=== PATIENT | male | born 1995 | race Two or more races ===

== ENCOUNTER 2017-08-29 03:02 | Emergency (ER) | payer OTHER ==
[~2017-08-29] VITALS: Ht 172.7 cm; Wt 65.8 kg
--- NOTE | 2017-08-29 03:10 | NUR ---
22 YO MALE BB RA FROM HOME. PATIENT IS ALERT AND ORIENTED, C/O NAUSEA, BODY ACHES, FLUE LIKE SYMPTOMS. PATIENT ASSISTED TO ER BED, SKINW ARM AND DRY, RESP EVEN AND UNLABORED. AWAITING ORDERS FROM PROVIDER, WILL CONTINUE TO MONITOR
--- NOTE | 2017-08-29 03:12 | NUR ---
ANDREW VELEZ MD AT BED SIDE FOR EVAL
[2017-08-29] MEDS ORDERED: IV NS 0.9% 1,000 ML IV PRN ×3 (03:30→05:00)
[2017-08-29 03:48] LABS: BASOPHILS % (AUTO) 0.3 % (0.0-2.0); EOSINOPHILS % (AUTO) 0.7 % (0.0-6.0); HEMATOCRIT 41 % (39-51); LYMPHOCYTES # (AUTO) 1.3 /CMM (0.8-4.8); LYMPHOCYTES % (AUTO) 24.2 % (20.0-44.0); MEAN CORPUSCULAR HEMOGLOBIN 31 PG (26.0-33.0); MEAN CORPUSCULAR HGB CONC 34 g/dl (31.0-36.0); MEAN CORPUSCULAR VOLUME 91 fL (80-96); MONOCYTES # (AUTO) 0.9 /CMM (0.1-1.30); NEUTROPHILS # (AUTO) 3.1 /CMM (1.8-8.9); NEUTROPHILS % (AUTO) 57.8 % (43.0-81.0); PLATELET COUNT (AUTO) 202 /CMM (150-450); RDW COEFFICIENT OF VARIATION 13.8 (11.5-15.0); RED BLOOD CELL COUNT(AUTO) 4.49 MIL/uL (4.5-6.0); WHITE BLOOD COUNT (AUTO) 5.4 K/uL (4.3-11.0)
[2017-08-29] MEDS ORDERED: MORPHINE SULFATE INJ 4 MG/ML DISP.SYRIN ONE (04:08)
[2017-08-29 04:09] LABS: BAND % (MANUAL) 4 % (0.0-5.0); LYMPHOCYTES % (MANUAL) 16 % (16-48); MONOCYTES % (MANUAL) 12 % (0-11.0)
[2017-08-29 04:10] LABS: ALBUMIN 3.6 g/dL (3.4-5.0); BILIRUBIN,DIRECT 0.1 mg/dL (0.0-0.2); BILIRUBIN,TOTAL 0.8 mg/dL (0.2-1.0); CALCIUM, SERUM 9.7 mg/dL (8.5-10.1); CREATININE 0.7 mg/dL (0.6-1.3); NEUTROPHILS % (MANUAL) 68 (42-76); POTASSIUM 3.6 mmol/L (3.5-5.1); TOTAL PROTEIN, SERUM 7.1 g/dL (6.4-8.2)
[2017-08-29] MEDS ORDERED: MORPHINE SULFATE INJ 2 MG/ML DISP.SYRIN IV ONE (04:30)
--- NOTE | 2017-08-29 05:09 | NUR ---
MOTHER RICHARD [phone]
[2017-08-29 05:22] LABS: APPEARANCE,URINE SL CLOUDY (CLEAR); BILIRUBIN,URINE 2+ (NEGATIVE); BLOOD, URINE NEGATIVE Ery/uL (NEGATIVE); COLOR,URINE BROWN (YELLOW); KETONES,URINE TRACE (NEGATIVE); LEUKOCYTE ESTERASE ,URINE 1+ (NEGATIVE); NITRITE, URINE POSITIVE (NEGATIVE); PROTEIN,URINE TRACE mg/dl (NEGATIVE); UGLUCOSE NEGATIVE (NEGATIVE)
[2017-08-29 05:28] LABS: RBC,URINE 0-2 /HPF (0-2)
[2017-08-29 05:29] LABS: BACTERIA,URINE Few /HPF (None Seen); SQUAMOUS EPITHELIAL CELL,UR Few /HPF (None Seen); WBC,URINE 81-100 /HPF (0-3)
[2017-08-29] MEDS ORDERED: CEFTRIAXONE 1GM BAG (ER ONLY) 50 ML IV ONE (05:48)
[2017-08-29] MEDS ORDERED: HYDROMORPHONE INJ 2 MG/ML DISP.SYRIN ONE (05:52)
[2017-08-29] MEDS ORDERED: CIPROFLOXACIN HCL 500 MG TABLET ONE (05:58)
[2017-08-29] MEDS ORDERED: CIPROFLOXACIN HCL 250 MG TABLET PO ONE (06:00)
[2017-08-29 06:32] VITALS: BP 105/68
--- NOTE | 2017-08-29 06:32 | NUR ---
Patient discharged to home in stable condition. Written and verbal after care instructions given. Patient verbalizes understanding of instruction.IV removed. Catheter intact and site benign. Pressure and 4x4 applied to site. No bleeding noted. PT ambulatory with a steady gait VITAL SIGNS WITHIN NORMAL LIMITS.
== END 2017-08-29 06:33 | disposition home or self-care (01) ==
LOC: ER 03:04
DX: N39.0 Urinary tract infection, site not specified (principal); K59.00 Constipation, unspecified; F32.9 Major depressive disorder, single episode, unspecified; I10 Essential (primary) hypertension
CPT/HCPCS: 36415; 71250; 74176; 80048; 80076; 81001; 83605; 83690; 85025; 87040 ×2; 87077; 87086; 87186; 96361; 96374; 99285; A4606; J1170; J2270; J7030 ×2; Z7610; 81000-TC; J0696